=== PATIENT | female | born 1955 | race Caucasian/White ===

== ENCOUNTER 2017-08-03 09:10 | Day surgery (SDC) | payer OTHER ==
[2017-07-27 13:24] VITALS: BMI 33.2
[2017-08-03] MEDS ORDERED: PROPOFOL 20 ML ONE (09:14)
[2017-08-03] MEDS ORDERED: LIDOCAINE HCL/PF 2% SDV 5ML VIAL ONE (09:14)
[2017-08-03 13:08] VITALS: TEMP 97.6
[2017-08-03 13:09] VITALS: BP 118/69; PULSE 52
--- NOTE | 2017-08-05 17:02 | PATH ---
Surgical Pathology Report Patient Name: HUSSAIN MENG [facility]. Rec. #: [id number] /Age/Gender: 1955 (Age: 61) / F Account: [id number] Location: [facility] Taken: 08/03/2017 Received: 08/04/2017 Reported: 08/05/2017 Physicians: Mandy Greenfield M.D. Specimen(s) Received A: BIOPSY OF 2ND PORTION OF DUODENUM B: BIOPSY OF ANTRUM C: BIOPSY OF GE JUNCTION Clinical History Dyspepsia Postoperative diagnosis: Gastritis, antral ulcers, rule out Kelly's Final Diagnosis A. DUODENUM, SECOND PORTION, BIOPSY: SMALL BOWEL MUCOSA WITHOUT SIGNIFICANT PATHOLOGIC FINDINGS. B. STOMACH, ANTRUM, BIOPSY: GASTRIC ANTRAL MUCOSA WITH MODERATE CHRONIC ACTIVE GASTRITIS. IMMUNOHISTOCHEMICAL STAIN FOR H. PYLORI IS POSITIVE (MANY). C. GASTROESOPHAGEAL (GE) JUNCTION, BIOPSY: SQUAMOCOLUMNAR MUCOSA WITH MODERATE ACUTE AND CHRONIC INFLAMMATION AND CHANGES OF MODERATE REFLUX ESOPHAGITIS. NO INTESTINAL METAPLASIA OR DYSPLASIA IDENTIFIED. Electronically Signed Mandy Scott M.D. Gross Description A. Received in formalin, labeled "second portion duodenum" is a cohen, irregular portion of soft tissue measuring 0.3 cm. in greatest dimension. The specimen is submitted in toto in one cassette. B. Received in formalin, labeled "BX antrum" is a cohen, irregular portion of soft tissue measuring 0.3 cm. in greatest dimension. The specimen is submitted in toto in one cassette. C. Received in formalin, labeled "BX GE junction" are 4 cohen, irregular portions of soft tissue ranging in size 0.2-0.3 cm. in greatest dimension. The specimens are submitted in toto in one cassette. RUPESH/08/04/2017 alem/08/04/2017
== END 2017-08-03 13:15 | disposition home or self-care (01) ==
LOC: FASU-ENDO 09:10
PROVIDERS: ATTEND Internal Medicine Gastroenterology
PROC: 0DB68ZX Excision of Stomach, Via Natural or Artificial Opening Endoscopic, Diagnostic (ICD-10-PCS; 2017-08-03)
PROC: 0DB48ZX Excision of Esophagogastric Junction, Via Natural or Artificial Opening Endoscopic, Diagnostic (ICD-10-PCS; 2017-08-03)
PROC: 0DB98ZX Excision of Duodenum, Via Natural or Artificial Opening Endoscopic, Diagnostic (ICD-10-PCS; principal; 2017-08-03 11:15)
DX: K25.9 Gastric ulcer, unspecified as acute or chronic, without hemorrhage or perforation (principal); K29.50 Unspecified chronic gastritis without bleeding; K21.0 Gastro-esophageal reflux disease with esophagitis; B96.81 Helicobacter pylori [H. pylori] as the cause of diseases classified elsewhere; R10.13 Epigastric pain

== ENCOUNTER 2017-11-02 08:50 | Day surgery (SDC) | payer OTHER ==
[2017-11-02] MEDS ORDERED: PROPOFOL 20 ML ONE ×2 (10:01)
[2017-11-02] MEDS ORDERED: LIDOCAINE HCL/PF 2% SDV 5ML VIAL ONE (10:16)
[2017-11-02 10:58] VITALS: TEMP 97.5
[2017-11-02 11:17] VITALS: BP 104/68; PULSE 55
--- NOTE | 2017-11-04 16:44 | PATH ---
Surgical Pathology Report Patient Name: HUSSAIN MENG [facility]. Rec. #: [id number] /Age/Gender: 1955 (Age: 61) / F Account: [id number] Location: Taken: 11/02/2017 Received: 11/02/2017 Reported: 11/04/2017 Physicians: Mandy Greenfield M.D. Specimen(s) Received A: BX ANTRUM B: GE JUNCTION Clinical History GERD, rule out colon cancer Postoperative diagnosis: Rule out H. Pylori, gastritis, duodenitis, healed gastric ulcers Final Diagnosis A. ANTRUM, BIOPSY: GASTRIC MUCOSA WITH ACTIVE CHRONIC GASTRITIS. IMMUNOSTAIN IS POSITIVE FOR H. PYLORI ORGANISMS. B. GE JUNCTION, BIOPSY: ONE FRAGMENT OF ESOPHAGEAL (SQUAMOUS) MUCOSA WITH REFLUX ESOPHAGITIS. GASTRIC MUCOSA WITH CHRONIC INFLAMMATION. NEGATIVE FOR INTESTINAL METAPLASIA. Electronically Signed Prashanth Douglass M.D. Gross Description A. Received in formalin, labeled "antrum" is a cohen, irregular portion of soft tissue measuring 0.5 cm. in greatest dimension. The specimen is submitted in toto in one cassette. B. Received in formalin, labeled "GE junction" are 3 cohen, irregular portions of soft tissue ranging from 0.3-0.5 cm. in greatest dimension. The specimens are submitted in toto in one cassette. 11/03/201711/03/2017
== END 2017-11-02 11:20 | disposition home or self-care (01) ==
LOC: FASU-ENDO 08:50
PROVIDERS: ATTEND Internal Medicine Gastroenterology
PROC: 0DB48ZX Excision of Esophagogastric Junction, Via Natural or Artificial Opening Endoscopic, Diagnostic (ICD-10-PCS; 2017-11-02)
PROC: 0DJD8ZZ Inspection of Lower Intestinal Tract, Via Natural or Artificial Opening Endoscopic (ICD-10-PCS; principal; 2017-11-02 10:22)
PROC: 0DB68ZX Excision of Stomach, Via Natural or Artificial Opening Endoscopic, Diagnostic (ICD-10-PCS; 2017-11-02 10:22)
DX: Z12.11 Encounter for screening for malignant neoplasm of colon (principal); K64.1 Second degree hemorrhoids; K64.4 Residual hemorrhoidal skin tags; K29.50 Unspecified chronic gastritis without bleeding; B96.81 Helicobacter pylori [H. pylori] as the cause of diseases classified elsewhere; K29.80 Duodenitis without bleeding; K21.0 Gastro-esophageal reflux disease with esophagitis; Z87.11 Personal history of peptic ulcer disease
CPT/HCPCS: 88305-TC; 88342-TC

== ENCOUNTER → 2019-06-12 | Day surgery (SDC) | payer BC ==
--- NOTE | 2019-06-13 15:01 | PATH ---
Surgical Pathology Report Patient Name: HUSSAIN MENG [facility]. Rec. #: [id number] /Age/Gender: 1955 (Age: 63) / F Account: [id number] Location: [facility]OLOGY [facility] Taken: 06/12/2019 Received: 06/12/2019 Reported: 06/13/2019 Physicians: Martin Funes M.D. Specimen(s) Received RIGHT BREAST CORE BIOPSY Clinical History Nonpalpable lesion Mammographic findings, ultrasound findings: Suspicious 0.7 cm mass Final Diagnosis BREAST, RIGHT, 9:30-10:00, ULTRASOUND GUIDED CORE BIOPSY: INVASIVE DUCTAL CARCINOMA, MODERATELY DIFFERENTIATED, MEASURING AT LEAST 5 MM IN THIS MATERIAL. DUCTAL CARCINOMA IN SITU (DCIS), INTERMEDIATE NUCLEAR GRADE, CRIBRIFORM TYPE, WITH ASSOCIATED MICROCALCIFICATIONS. Comment: Findings discussed with Dr. Lee, 06/13/19. Breast biomarkers pending, Findings will be reported separately. Electronically Signed Mandy Scott M.D. Addendum Reported: 06/18/2019 Addendum Diagnosis Breast biomarkers performed at [place], [place] ([id number]) are as follows: ER (clone [id number] mouse monoclonal antibody by [employer]): >95% nuclear staining with strong intensity (Positive). MS (clone16 mouse monoclonal antibody by [employer]): >90% nuclear staining with moderate to strong intensity (Positive). Her2 IHC (EP3 from [employer], formerly known as [id number], using [employer] Polymer Refine detection kit): 1+ (Negative) Ki-67: ~5% (Low proliferative index). Positive and negative controls (internal if applicable) show appropriate results. Formalin fixation and cold ischemic times are within current ASCO/CAP recommendations for ER, MS and Her2 testing. Mandy Scott M.D. Gross Description Received in formalin labeled "right breast 9:30-10:00," is a 1.1 x 1.0 x 0.2 cm aggregate of multiple cohen-yellow, irregular to cylindrical portions of fibroadipose tissue. The formalin is filtered and the specimen is entirely submitted in one cassette. Time to formalin fixation: Less than one minute Total formalin fixation time: Approximately 6 hours. /06/12/2019/06/12/2019
--- NOTE | 2019-06-13 16:46 | PATH ---
Cytology Non-Gynecological Report Patient Name: HUSSAIN MENG Med. Rec. #: [id number] /Age/Gender: 1955 (Age: 63) / F Account: [id number] Location: [facility]OLOGY [facility] Taken: 06/12/2019 Received: 06/12/2019 Reported: 06/13/2019 Physicians: Martin Funes M.D. Specimen(s) Received BREAST, RIGHT, 10:00, CYST, ULTRASOUND GUIDED FINE NEEDLE ASPIRATION Clinical History Right breast cyst, 10:00, 4 cm Final Diagnosis BREAST, RIGHT, 10:00, CYST, ULTRASOUND GUIDED FINE NEEDLE ASPIRATION: SATISFACTORY FOR EVALUATION. NO MALIGNANT CELLS IDENTIFIED. SCANT PROTEINACEOS DEBRIS, RARE MACROPHAGES, AND RARE DEGENERATED DUCTAL CELLS, CONSISTENT WITH CYST CONTENTS. Comment: Findings are best seen in the cell block material. See concurrent material ([id number]). Electronically Signed Mandy Scott M.D. Gross Description Approximately 30 cc of clear fluid received fixed in 50% alcohol. One cytofunnel prepared and Pap stained. One cellblock prepared.
== END | disposition home or self-care (01) ==
LOC: JRADUS-SUR 11:06
PROVIDERS: ATTEND Specialist
PROC: 0HBT3ZX Excision of Right Breast, Percutaneous Approach, Diagnostic (ICD-10-PCS; principal; 2019-06-12)
PROC: BH40ZZZ Ultrasonography of Right Breast (ICD-10-PCS; 2019-06-12)
PROC: 0H9T3ZX Drainage of Right Breast, Percutaneous Approach, Diagnostic (ICD-10-PCS; 2019-06-12)
DX: C50.411 Malignant neoplasm of upper-outer quadrant of right female breast (principal); N63.11 Unspecified lump in the right breast, upper outer quadrant; N60.01 Solitary cyst of right breast
CPT/HCPCS: 19083; 76942-TC; 77065-TC; 87899; 88173; 88305-TC; A4648

== ENCOUNTER 2023-04-05 08:08 | Day surgery (SDC) | payer OTHER ==
[2023-03-31 14:37] VITALS: BMI 30.2
[2023-04-05 08:34] VITALS: RESP 18
[2023-04-05 10:00] VITALS: TEMP 97.1
[2023-04-05 10:02] VITALS: BP 120/71; PULSE 69
== END 2023-04-05 10:00 | disposition home or self-care (01) ==
LOC: FASU-ENDO 08:08
PROVIDERS: ATTEND Internal Medicine Gastroenterology
PROC: 0DB68ZX Excision of Stomach, Via Natural or Artificial Opening Endoscopic, Diagnostic (ICD-10-PCS; 2023-04-05)
PROC: 0DB18ZX Excision of Upper Esophagus, Via Natural or Artificial Opening Endoscopic, Diagnostic (ICD-10-PCS; 2023-04-05)
PROC: 0DB28ZX Excision of Middle Esophagus, Via Natural or Artificial Opening Endoscopic, Diagnostic (ICD-10-PCS; 2023-04-05)
PROC: 0DB38ZX Excision of Lower Esophagus, Via Natural or Artificial Opening Endoscopic, Diagnostic (ICD-10-PCS; 2023-04-05)
PROC: 0DB48ZX Excision of Esophagogastric Junction, Via Natural or Artificial Opening Endoscopic, Diagnostic (ICD-10-PCS; 2023-04-05)
PROC: 0DB98ZX Excision of Duodenum, Via Natural or Artificial Opening Endoscopic, Diagnostic (ICD-10-PCS; principal; 2023-04-05 09:19)
DX: Z87.19 Personal history of other diseases of the digestive system (principal); R10.13 Epigastric pain
CPT/HCPCS: 88305-TC; 88342-TC

== ENCOUNTER → 2023-11-03 | Day surgery (SDC) | payer OTHER | END | disposition home or self-care (01) | LOC: FRADUS-SUR 10:20 | PROVIDERS: ATTEND Legal Medicine | PROC: 0HBT3ZX Excision of Right Breast, Percutaneous Approach, Diagnostic (ICD-10-PCS; principal; 2023-11-03) | DX: Z53.8 Procedure and treatment not carried out for other reasons (principal) | CPT/HCPCS: 19085 ==